=== PATIENT | male | born 1955 | race Caucasian/White ===

== ENCOUNTER 2017-11-17 13:54 | Inpatient (IN) | payer BC ==
[2017-11-17 14:00] VITALS: BMI 32.3
--- NOTE | 2017-11-17 16:10 | PDOC ---
History of Present Illness - History of Present Illness Initial Comments: 11/17/17 16:30 The patient is a 62-year-old male with past medical history significant for HTN , DM, and low white count presents to the emergency department with AMS, memory changes and instability with gait. The patient is a poor historian, so the history is provided by his daughter. As per daughter, the patient suffered a fall on November 11. Following, the patient followed up at [facility], uncertain of the diagnostic testing he had. The daughter reports since the fall hes been staying with the daughter. The daughter reports the patients gait been unsteady, secondary to they got the patient a cane. The patient reports associated concern of abdominal and back pain, No focal weakness, fever or chills. Allergies: Penicillins Social history: No alcohol use reported. PCP: None reported <Alicia Jain - Last Filed: 11/17/17 16:42> - General History Source: Patient, Family Exam Limitations: Dementia, Unresponsive <Ciera Atkins - Last Filed: 11/17/17 18:56> - General Chief Complaint: Altered Mental Status Stated Complaint: ALTERED MENTAL STATUS Past History <Alicia Jain - Last Filed: 11/17/17 16:42> - Past Medical History Anemia: Yes COPD: No Diabetes: Yes HTN: Yes - Surgical History Appendectomy: Yes - Suicide/Smoking/Psychosocial Hx Smoking History: Former smoker Have you smoked in the past 12 months: No If you are a former smoker, when did you quit?: years ago Information on smoking cessation initiated: No <Ciera Atkins - Last Filed: 11/17/17 18:56> - Past Medical History Allergies/Adverse Reactions: Allergies Allergy/AdvReac Type Severity Reaction Status Date / Time Penicillins Allergy Verified 11/17/17 13:56 Review of Systems - Review of Systems Comments:: 11/17/17 16:41 GENERAL/CONSTITUTIONAL: (+) AMS and confusion and No fever or chills. HEAD, EYES, EARS, NOSE AND THROAT: No change in vision. No ear pain or discharge. No sore throat. CARDIOVASCULAR: No chest pain or shortness of breath. RESPIRATORY: No cough, wheezing, or hemoptysis. GASTROINTESTINAL: (+) abd pain. No nausea, vomiting, diarrhea or constipation. GENITOURINARY: No dysuria, frequency, or change in urination. MUSCULOSKELETAL: (+) back pain. No joint or muscle swelling or pain. No neck pain. SKIN: No rash NEUROLOGIC: gait instability. No headache, vertigo, loss of consciousness, or change in strength/sensation. ENDOCRINE: No increased thirst. No abnormal weight change. HEMATOLOGIC/LYMPHATIC: No anemia, easy bleeding, or history of blood clots. ALLERGIC/IMMUNOLOGIC: No hives or skin allergy. <Alicia Jain - Last Filed: 11/17/17 16:42> *Physical Exam - Vital Signs Last Vital Signs Temp Pulse Resp BP Pulse Ox 97.5 F L 54 L 20 113/59 L 96 11/17/17 13:56 11/17/17 13:56 11/17/17 13:56 11/17/17 13:56 11/17/17 13:56 <Alicia Jain - Last Filed: 11/17/17 16:42> - Vital Signs Last Vital Signs Temp Pulse Resp BP Pulse Ox 97.5 F L 54 L 20 113/59 L 96 11/17/17 13:56 11/17/17 13:56 11/17/17 13:56 11/17/17 13:56 11/17/17 13:56 - Physical Exam Comments: 11/17/17 16:09 Awake alert no acute distress. Head is atraumatic. No midline cervical spinal tenderness. Lungs are clear bilaterally heart is regular without any murmurs rubs or gallops. Abdomen is soft and nontender. The back demonstrates mid thoracic spinal tenderness no flank ecchymosis noted. Neurologically the patient is awake alert oriented 3 does have difficulty with remote memory and can't recollect the events of his prior workup. Speech is clear strength is 5 out of 5 all 4 extremities. Finger to nose bilaterally is normal cranial nerves II through XII are intact <Ciera Atkins - Last Filed: 11/17/17 18:56> Heart Score/ECG Review #1 General ECG Interpretation: Sinus Rhythm, Normal Rate, Normal Intervals, No acute ischemic changes Compared to previous ECG there are: Other (TWI II, AVF flattened. no old ekg.) <Ciera Atkins - Last Filed: 11/17/17 18:56> ED Treatment Course - LABORATORY CBC & Chemistry Diagram: 11/17/17 17:00 11/17/17 17:00 - RADIOLOGY Radiology Studies Ordered: Category Date Time Status HEAD CT WITHOUT CONTRAST [CT] Stat CT Scan 11/17/17 15:54 Ordered <Ciera Atkins - Last Filed: 11/17/17 18:56> Medical Decision Making - Medical Decision Making 11/17/17 16:07 62 yo male with h/o htn, DM , low wbc count here s/p fall 11/11 ( 1 week ago) here with instable gait, confusion and memory changes. no focal waewaknss. was seen at [facility], uncertain of diagnostic test that were performed. also c/o upper back pain. no n/v. does have a headache. denies alcohol or drug use. differential: infeciton, ich, anemia, cva, plan labs ekg tox ct head. cxr xray thoracic spine. 11/17/17 16:37 per patients consent, was able to call [facility] where pt was seen , confirmed pt had a srinivasan scan and ct head which were negative for any traumatic injuries. 11/17/17 16:[address] head. 11/17/17 18:55 pt states he has been taking new medication for panic attacks. which he stopped. tox positive for methadone and benzo. ct head negative. will refer outpt. pt want to go home fu pcp and nuerology. 11/17/17 18:56 pt alert and oriented x 3 now. <Ciera Atkins - Last Filed: 11/17/17 18:56> *DC/Admit/Observation/Transfer - Attestations Scribe Attestion: 11/17/17 16:43 Documentation prepared by Alicia Jain, acting as medical radiation therapist for Ciera Atkins MD. <Alicia Jain - Last Filed: 11/17/17 16:42> <Ciera Atkins - Last Filed: 11/17/17 18:56> Diagnosis at time of Disposition: Headache
[2017-11-17 17:13] LABS: BASO % 0.8 % (0-2.0); EOS % 2.9 % (0-4.5); HEMATOCRIT 36.1 % (35.4-49); HEMOGLOBIN 11.6 GM/dL (11.7-16.9); LYMPH % 32.6 % (8-40); MCH 25.3 pg (25.7-33.7); MCHC 32.2 g/dl (32.0-35.9); MEAN CELL VOLUME 78.7 fl (80-96); MEAN PLT VOLUME 7.4 fl (7.5-11.1); NEUT % 56.7 % (42.8-82.8); PLATELET COUNT 188 K/MM3 (134-434); RBC 4.58 M/mm3 (4.00-5.60); RDW 16.4 % (11.9-15.9); WHITE BLOOD COUNT 6.2 K/mm3 (4.0-10.0)
[2017-11-17 17:28] LABS: URINE APPEARANCE CLEAR; URINE BILIRUBIN NEGATIVE (<2.0 mg/dL); URINE COLOR DKYELLOW; URINE GLUCOSE (UA) NEGATIVE (NEGATIVE); URINE KETONE NEGATIVE (NEGATIVE); URINE LEUK ESTERASE NEGATIVE (NEGATIVE); URINE NITRITE NEGATIVE (NEGATIVE); URINE PROTEIN 1+ (NEGATIVE)
[2017-11-17 17:43] LABS: ALBUMIN 3.8 g/dl (3.4-5.0); ALK PHOS 96 U/L (45-117); ANION GAP 4 MMOL/L (8-16); BILIRUBIN,TOTAL 0.4 mg/dL (0.2-1); BLOOD UREA NITROGEN 17 mg/dL (7-18); CALCIUM 8.6 mg/dL (8.5-10.1); CHLORIDE 104 mmol/L (98-107); CO2 33 mmol/L (21-32); CREATININE 1.3 mg/dL (0.55-1.3); GLUCOSE,RANDOM 70 mg/dL (74-106); POTASSIUM 4.3 mmol/L (3.5-5.1); SGOT/AST 30 U/L (15-37); SGPT/ALT 22 U/L (13-61); SODIUM 141 mmol/L (136-145); TOT PROT 7.4 g/dl (6.4-8.2)
[2017-11-17 17:45] LABS: COCAINE, UR NEGATIVE ng/ml (CUTOFF=300); OPIATES, URI NEGATIVE ng/ml (CUTOFF=300); PHENCYCLIDINE,URINE NEGATIVE ng/ml (CUTOFF=25); URINE AMPHETAMINES NEGATIVE ng/ml (CUTOFF=500); URINE BARBITURATES NEGATIVE ng/ml (CUTOFF=200)
[2017-11-17 17:46] LABS: METHADONE, UR POSITIVE ng/ml (CUTOFF=300); URINE BENZODIAZEPINES POSITIVE ng/ml (CUTOFF=200)
[2017-11-17 18:54] LABS: URINE HYALINE CAST 0-1 /lpf; URINE MUCUS RARE
--- NOTE | 2017-11-17 21:07 | PN ---
Teaching Attending Note Name of Resident: Noe Simeon ATTENDING PHYSICIAN STATEMENT I saw and evaluated the patient. I reviewed the resident's note and discussed the case with the resident. I agree with the resident's findings and plan as documented. SUBJECTIVE: Patient is a 62 year old man with PMH of HTN, NIDDM, penicillin allergy and low white count who presents to the ER with AMS, memory changes and instability with gait. The patient is a poor historian, so the history is provided by his daughter. As per daughter, the patient suffered a fall from a height at work on November 11. Following, the patient followed up at [facility], uncertain of the diagnostic testing he had. The daughter reports since the fall hes been staying with the daughter. The daughter reports the patients gait been unsteady , secondary to they got the patient a cane. The patient reports associated concern of abdominal and back pain, No focal weakness, fever or chills. OBJECTIVE: Alert and globally weak Vital Signs Period Temp Pulse Resp BP Sys/Persaud Pulse Ox Last 24 Hr 97.5 F-97.8 F 54-54 18-20 113-116/56-59 96-98 HEENT: No Jaundice, eye redness or discharge, PERRLA, EOMI. Normocephalic, atraumatic. External ears are normal and hearing is grossly intact. No nasal discharge. Neck: Supple, nontender. No palpable adenopathy or thyromegaly. No JVD Chest: Good effort. Clear to auscultation and percussion. Heart: Regular. No S3, rub or murmur Abdomen: Not distended, soft, nontender and no HSM. No rebound or guarding. Normoactive bowel sounds. Ext: Peripheral pulses intact. No leg edema. Tender in lumbosacral area Skin: Warm and dry. No petechiae, rash or ecchymosis. Neuro: Alert. Oriented x3. Globally weak and sluggish. Poor memory. Poor gait. CN 2-12 grossly intact. Sensation grossly intact in all four extremities and DTR are symmetric. Abnormal Lab Results 11/17/17 11/17/17 11/17/17 17:00 17:00 17:20 Hgb 11.6 L MCV 78.7 L MCH 25.3 L RDW 16.4 H MPV 7.4 L Carbon Dioxide 33 H Anion Gap 4 L Random Glucose 70 L Urine Protein 1+ H Methadone Screen Benzodiazepines Screen 11/17/17 17:20 Hgb MCV MCH RDW MPV Carbon Dioxide Anion Gap Random Glucose Urine Protein Methadone Screen Positive A* Benzodiazepines Screen Positive A* ASSESSMENT AND PLAN: 1. Fall and AMS - [place] concern is cerebral concussion as well as brain/spinal cord trauma. Will get stat MRI of brain and spinal cord, treat with Decadron 10 mg q 6 hours, PO protonix, implement fall precautions and consult Neurology and PT. 2. DM - For now, we will hold the home diabetes drugs and implement sliding scale insulin regimen. Provide comprehensive diabetes care with patient teaching and counseling about the importance of euglycemia, eye care and foot care. 3. Low MCV Anemia - Will do basic anemia work up including serial stool guaiacs , reticulocyte count and iron studies. Would benefit from Procrit therapy once iron replete. 4. Obesity - Will provide patient all the necessary assistance, counseling and positive reinforcement to facilitate weight loss. Consult clicker operator. 5. DVT prophylaxis - Lovenox 40 mg SQ q 24 hours. 6. Advance directives - Full code
--- NOTE | 2017-11-17 22:14 | HP ---
CHIEF COMPLAINT: Severe back pain and weakness PCP: HISTORY OF PRESENT ILLNESS: 62yo M with history of HTN, ? DM, and chronic back pain who presents with severe back pain manifesting 1 week after traumatic fall reportedly from 20- 25ft. Pt reports he was on a ladder and then fell with loss of consciousness. Pt reports not remembering any of the events, but family member reports pt was sent to [facility] for initial workup. Pt was discharged at this time on 11/11/17 from [facility]. Unfortunately, pt reports increasing severe back pain located at the cervical spine, about T5, and about L4 regions of his back. Pt endorses severe R unilateral headache with associated blurry vision intermittently. In addition pt reports having an unstable gait and recently bought a cane due to the instability. He states that throughout the past week he has had clouding of his sensorium and feels that he can't do working memory tasks as fast as he could prior to the fall (with in agreement). PAST MEDICAL HISTORY: HTN ? diet-controlled DM PAST SURGICAL HISTORY: Social History: Smoking: None Alcohol: None Drugs: None Lives at home with . Baseline prior to fall was neurologically intact, walking independently without assist device Family History: No history of psych or neuro disorders; otherwise deferred for promptness of MRI Allergies Penicillins Allergy (Verified 11/17/17 13:56) HOME MEDICATIONS: REVIEW OF SYSTEMS CONSTITUTIONAL: Absent: fever, chills, diaphoresis, generalized weakness, malaise, loss of appetite, weight change HEENT: Absent: rhinorrhea, nasal congestion, throat pain, throat swelling, difficulty swallowing, mouth swelling, ear pain, eye pain, visual changes CARDIOVASCULAR: Absent: chest pain, syncope, palpitations, irregular heart rate, lightheadedness , peripheral edema RESPIRATORY: Absent: cough, shortness of breath, dyspnea with exertion, orthopnea, wheezing, stridor, hemoptysis GASTROINTESTINAL: Absent: abdominal pain, abdominal distension, nausea, vomiting, diarrhea, constipation, melena, hematochezia GENITOURINARY: Absent: dysuria, frequency, urgency, hesitancy, hematuria, flank pain, genital pain MUSCULOSKELETAL: Absent: myalgia, arthralgia, joint swelling, back pain, neck pain SKIN: Absent: rash, itching, pallor HEMATOLOGIC/IMMUNOLOGIC: Absent: easy bleeding, easy bruising, lymphadenopathy, frequent infections ENDOCRINE: Absent: unexplained weight gain, unexplained weight loss, heat intolerance, cold intolerance NEUROLOGIC: Absent: headache, focal weakness or paresthesias, dizziness, unsteady gait, seizure, mental status changes, bladder or bowel incontinence PSYCHIATRIC: Absent: anxiety, depression, suicidal or homicidal ideation, hallucinations. PHYSICAL EXAMINATION Vital Signs - 24 hr 11/17/17 11/17/17 13:56 18:35 Temperature 97.5 F L 97.8 F Pulse Rate 54 L Pulse Rate [ 54 L Right] Respiratory 20 18 Rate Blood Pressure 113/59 L Blood Pressure 116/56 L [Right Arm] O2 Sat by Pulse 96 98 Oximetry (%) GENERAL: Mild-mod distress from pain, awake, alert to spontaneous stimuli, oriented x3. laying in bed on side HEENT: NC/AT, MARY ALICE, sclera anicteric, dry MM noted, peripheral vision intact, however pt reports sometimes blurriness during exam LUNGS: Poor inspiratory effort, CTA b/l. No wheezes, and no crackles. No accessory muscle use. HEART: RRR, normal S1 and S2 without murmur ABDOMEN: Soft, nondistended, normoactive BS, slightly tender region periumbillically, no abdominal bruit auscultated, difficult to assess abdominal aorta due to body habitus, voluntary guarding noted, no masses. Could not assess organomegaly. MUSCULOSKELETAL: Multiple points of point tenderness of spinous process most notably at C5-6, T5-6, and L4-5 regions with associated paraspinal tenderness R> L. No overt spinal instability at this time. ROM limitations due to pain with movement. EXTREMITIES: 2+ DP and PT pulses, warm, well-perfused. No cyanosis. No peripheral edema. NEUROLOGICAL: EOMI intact, MARY ALICE CN II-XII intact, strength 3/5 with LUE hand senior cognos developer vs. 4/5 with RUE, 4/5 b/l with abduction and adduction of hands 4/5 b/l with arm flexion and extension hip flexion limited due to pain Plantar and dorsal flexion 5/5 Sensation diminished in LUE C6, 7, 8 distribution compared to R Dysmetria with intentional tremoring with L sided [id number] test; R side normal (Exam performed while pt on back) Dysdiadochokinesia noted with L hand PSYCHIATRIC: Cooperative. Good eye contact. Appropriate mood and affect. SKIN: Warm, dry, normal turgor, no rashes or lesions noted, no overt ecchymosis of the back noted or any ecchymosis of the abdomen Laboratory Results - last 24 hr 11/17/17 11/17/17 11/17/17 17:00 17:00 17:20 WBC 6.2 RBC 4.58 Hgb 11.6 L Hct 36.1 MCV 78.7 L MCH 25.3 L MCHC 32.2 RDW 16.4 H Plt Count 188 MPV 7.4 L Absolute Neuts (auto) 3.5 Neutrophils % 56.7 Lymphocytes % 32.6 Monocytes % 7.0 Eosinophils % 2.9 Basophils % 0.8 Nucleated RBC % 0 Sodium 141 Potassium 4.3 Chloride 104 Carbon Dioxide 33 H Anion Gap 4 L BUN 17 Creatinine 1.3 Creat Clearance w eGFR 55.94 Random Glucose 70 L Calcium 8.6 Total Bilirubin 0.4 AST 30 ALT 22 Alkaline Phosphatase 96 Total Protein 7.4 Albumin 3.8 Urine Color Dkyellow Urine Appearance Clear Urine pH 5.0 Ur Specific [place] 1.029 Urine Protein 1+ H Urine Glucose (UA) Negative Urine Ketones Negative Urine Blood Negative Urine Nitrite Negative Urine Bilirubin Negative Urine Urobilinogen 2.0 Ur Leukocyte Esterase Negative Urine WBC (Auto) 10 Urine RBC (Auto) 2-5 Hyaline Casts 0-1 Urine Mucus Rare Opiates Screen Methadone Screen Barbiturate Screen Phencyclidine Screen Ur Amphetamines Screen MDMA (Ecstasy) Screen Benzodiazepines Screen Cocaine Screen U Marijuana (THC) Screen 11/17/17 17:20 WBC RBC Hgb Hct MCV MCH MCHC RDW Plt Count MPV Absolute Neuts (auto) Neutrophils % Lymphocytes % Monocytes % Eosinophils % Basophils % Nucleated RBC % Sodium Potassium Chloride Carbon Dioxide Anion Gap BUN Creatinine Creat Clearance w eGFR Random Glucose Calcium Total Bilirubin AST ALT Alkaline Phosphatase Total Protein Albumin Urine Color Urine Appearance Urine pH Ur Specific [place] Urine Protein Urine Glucose (UA) Urine Ketones Urine Blood Urine Nitrite Urine Bilirubin Urine Urobilinogen Ur Leukocyte Esterase Urine WBC (Auto) Urine RBC (Auto) Hyaline Casts Urine Mucus Opiates Screen Negative Methadone Screen Positive A* Barbiturate Screen Negative Phencyclidine Screen Negative Ur Amphetamines Screen Negative MDMA (Ecstasy) Screen Negative Benzodiazepines Screen Positive A* Cocaine Screen Negative U Marijuana (THC) Screen Negative ASSESSMENT/PLAN: 1) R/o traumatic spinal cord injury --Emergent C,T,L-spine MRI w/o contrast to r/o cord compression or traction injury --Neurology already consulted in ED --Will await imaging prior to consulting neurosurgery --Decadron 10mg q6h starting NOW for possible neurological inflammation --Fall precautions 2) History HTN --Right now BP WNL --Will hold off antihypertensives for now and monitor BP 3) History of Methadone use --Pt did not provide Methadone card tonight --Already received dose today from services --Will have to confirm dose tomorrow AM 4) ? DM history --A1c in AM labs --BGM for now --Can implement ISS if anything noted to be elevated 5) Microcytic anemia --Iron studies in AM --No acute bleeds at this point --Doubt thalassemia history FEN: Fluids: Not indicated at this time Electrolyte abnormalities: None currently Nutrition: NPO currently until no intervention needed PPX: DVT - Holding heparin SQ in case of surgical intervention needed; SCDs currently GI - Protonix PO daily Dispo: Admit to M/S Case discussed with Dr. Maura Simeon, DO - IM PGY-2 Visit type - Emergency Visit Emergency Visit: Yes ED Registration Date: 11/18/17 Care time: The patient presented to the Emergency Department on the above date and was hospitalized for further evaluation of their emergent condition. - New Patient This patient is new to me today: Yes Date on this admission: 11/18/17 - Critical Care Critical Care patient: No
[2017-11-17] MEDS ORDERED: DEXAMETHASONE SOD PHOSPHATE 10 MG/1 ML VIAL ONE (22:37)
[2017-11-17] MEDS: DEXAMETHASONE SOD PHOSPHATE 10 MG/1 ML VIAL IVPUSH SCH (23:00)
--- NOTE | 2017-11-18 00:16 | PDOC ---
*Physical Exam - Vital Signs Last Vital Signs Temp Pulse Resp BP Pulse Ox 98.4 F 50 L 16 114/57 L 92 L 11/17/17 23:10 11/17/17 23:10 11/17/17 23:10 11/17/17 23:10 11/17/17 23:10 ED Treatment Course - LABORATORY CBC & Chemistry Diagram: 11/17/17 17:00 11/17/17 17:00 - ADDITIONAL ORDERS Additional order review: Laboratory Results 11/17/17 11/17/17 11/17/17 17:20 17:20 17:00 Sodium 141 Potassium 4.3 Chloride 104 Carbon Dioxide 33 H Anion Gap 4 L BUN 17 Creatinine 1.3 Creat Clearance w eGFR 55.94 Random Glucose 70 L Calcium 8.6 Total Bilirubin 0.4 AST 30 ALT 22 Alkaline Phosphatase 96 Total Protein 7.4 Albumin 3.8 Urine Color Dkyellow Urine Appearance Clear Urine pH 5.0 Ur Specific [place] 1.029 Urine Protein 1+ H Urine Glucose (UA) Negative Urine Ketones Negative Urine Blood Negative Urine Nitrite Negative Urine Bilirubin Negative Urine Urobilinogen 2.0 Ur Leukocyte Esterase Negative Urine WBC (Auto) 10 Urine RBC (Auto) 2-5 Hyaline Casts 0-1 Urine Mucus Rare Opiates Screen Negative Methadone Screen Positive A* Barbiturate Screen Negative Phencyclidine Screen Negative Ur Amphetamines Screen Negative MDMA (Ecstasy) Screen Negative Benzodiazepines Screen Positive A* Cocaine Screen Negative U Marijuana (THC) Screen Negative 11/17/17 17:00 RBC 4.58 MCV 78.7 L MCHC 32.2 RDW 16.4 H MPV 7.4 L Neutrophils % 56.7 Lymphocytes % 32.6 Monocytes % 7.0 Eosinophils % 2.9 Basophils % 0.8 - RADIOLOGY Radiology Studies Ordered: Category Date Time Status BRAIN MRI W/O CONTRAST [MRI] Stat MRI 11/17/17 20:12 Taken CERVICAL SPINE MRI W/O CONTR [MRI] Stat MRI 11/17/17 20:12 Taken LUMBAR SPINE MRI W/O CONTRAST [MRI] Stat MRI 11/17/17 20:12 Taken THORACIC SPINE MRI W/O CONTR [MRI] Stat MRI 11/17/17 20:12 Taken *DC/Admit/Observation/Transfer Diagnosis at time of Disposition: Headache, Head trauma, Spine injury, Unstable balance - Discharge Dispostion Condition at time of disposition: Guarded Decision to Admit order: Yes - Referrals - Patient Instructions - Post Discharge Activity
[2017-11-18] MEDS ORDERED: DEXAMETHASONE SOD PHOSPHATE 10 MG/1 ML VIAL ONE (03:07)
[2017-11-18] MEDS: DEXAMETHASONE SOD PHOSPHATE 10 MG/1 ML VIAL IVPUSH SCH ×4 (03:08→21:45)
[2017-11-18] MEDS ORDERED: ACETAMINOPHEN 325 MG TABLET (FP) ONE (04:10)
[2017-11-18] MEDS ORDERED: ACETAMINOPHEN 325 MG TABLET (FP) PO PRN (07:04)
[2017-11-18 07:57] LABS: HEMATOCRIT 36.9 % (35.4-49); HEMOGLOBIN 11.8 GM/dL (11.7-16.9); MCH 24.9 pg (25.7-33.7); MCHC 31.9 g/dl (32.0-35.9); MEAN CELL VOLUME 78.1 fl (80-96); MEAN PLT VOLUME 7.7 fl (7.5-11.1); PLATELET COUNT 158 K/MM3 (134-434); RBC 4.72 M/mm3 (4.00-5.60); RDW 16.6 % (11.9-15.9); WHITE BLOOD COUNT 4.5 K/mm3 (4.0-10.0)
[2017-11-18 08:24] LABS: ALBUMIN 3.6 g/dl (3.4-5.0); ALK PHOS 94 U/L (45-117); ANION GAP 6 MMOL/L (8-16); BILIRUBIN,TOTAL 0.4 mg/dL (0.2-1); BLOOD UREA NITROGEN 17 mg/dL (7-18); CALCIUM 8.5 mg/dL (8.5-10.1); CHLORIDE 102 mmol/L (98-107); CO2 29 mmol/L (21-32); GLUCOSE,RANDOM 151 mg/dL (74-106); MAGNESIUM 2.3 mg/dL (1.8-2.4); PHOSPHOROUS 2.6 mg/dL (2.5-4.9); POTASSIUM 4.3 mmol/L (3.5-5.1); SGOT/AST 25 U/L (15-37); SGPT/ALT 20 U/L (13-61); SODIUM 137 mmol/L (136-145); TOT PROT 7.6 g/dl (6.4-8.2)
[2017-11-18] MEDS ORDERED: PT OWN MED DRAWER 7, Y5N ONE ×2 (09:35→21:11)
[2017-11-18] MEDS: PANTOPRAZOLE 40 MG TABLET (FP) PO SCH (10:29)
--- NOTE | 2017-11-18 14:26 | PN ---
Progress Note (short form) - Note Progress Note: currently asymptomatic. states he has been increasingly forgetful, more to short term than longterm memory over the past week since falling off the boiler 1 week ago. also noted an ataxic gait during this time requiring him to use a cane but states its slightly better. Saw PMD this past week who recommended some f/u images which were scheduled for next week. also admits to bowel incontinence denies Cp, SOB, fever, chills, N/v/C/D, numbness/weakness, denies every taking a betablocker, changes in medications. Took some tylenol for pain but denies OTC or herbal supplement Current Medications Generic Name Dose Route Start Last Admin Trade Name Freq PRN Reason Stop Dose Admin Acetaminophen 650 mg 11/18/17 07:04 11/18/17 10:33 Tylenol - PO 650 mg Q4H PRN Administration FEVER Dexamethasone Sodium Phosphate 10 mg 11/17/17 22:15 11/18/17 11:38 Decadron Injection - IVPUSH 10 mg Q6H-IV BERTO Administration Pantoprazole Sodium 40 mg 11/18/17 10:00 11/18/17 10:29 Protonix - PO 40 mg DAILY BERTO Administration Last Vital Signs Temp Pulse Resp BP Pulse Ox 98.2 F 40 L 17 149/72 95 11/18/17 08:00 11/18/17 08:00 11/18/17 09:00 11/18/17 08:00 11/18/17 09:00 General NAD CV S1 s2 RRR no murmur/rub/gallop Lungs CTA B/l no wheezing/rales/rhnchi Neuro CN II -XII grossly intact, negative pronator/dysmetria/dysdakinesia/heel to thomas testing. strength 3/5 RLE (poximal>distal) 5/5 in all other extremities , sensation intact all extremities. good rectal tone CBCD WBC 4.5 K/mm3 (4.0-10.0) 11/18/17 06:40 RBC 4.72 M/mm3 (4.00-5.60) 11/18/17 06:40 Hgb 11.8 GM/dL (11.7-16.9) 11/18/17 06:40 Hct 36.9 % (35.4-49) 11/18/17 06:40 MCV 78.1 fl (80-96) L 11/18/17 06:40 MCHC 31.9 g/dl (32.0-35.9) L 11/18/17 06:40 RDW 16.6 % (11.9-15.9) H 11/18/17 06:40 Plt Count 158 K/MM3 (134-434) 11/18/17 06:40 MPV 7.7 fl (7.5-11.1) 11/18/17 06:40 CMP Sodium 137 mmol/L (136-145) 11/18/17 06:40 Potassium 4.3 mmol/L (3.5-5.1) 11/18/17 06:40 Chloride 102 mmol/L (98-107) 11/18/17 06:40 Carbon Dioxide 29 mmol/L (21-32) 11/18/17 06:40 Anion Gap 6 MMOL/L (8-16) L 11/18/17 06:40 BUN 17 mg/dL (7-18) 11/18/17 06:40 Creatinine 1.0 mg/dL (0.55-1.3) 11/18/17 06:40 Creat Clearance w eGFR > 60 (>60) 11/18/17 06:40 Calcium 8.5 mg/dL (8.5-10.1) 11/18/17 06:40 Total Bilirubin 0.4 mg/dL (0.2-1) 11/18/17 06:40 AST 25 U/L (15-37) 11/18/17 06:40 ALT 20 U/L (13-61) 11/18/17 06:40 Alkaline Phosphatase 94 U/L (45-117) 11/18/17 06:40 Total Protein 7.6 g/dl (6.4-8.2) 11/18/17 06:40 Albumin 3.6 g/dl (3.4-5.0) 11/18/17 06:40 A/P 62yo M wtih PMH HTN, DM, panic disorder and chronic pain on methadone presented to the ER with progressively worsening memory and ataxic gait after traumatic fall 1. memory loss- s/p traumatic fall. concern patient may have had a concussion however concern for spinal cord injury. Started on Dex and Stat MRI of the brain and complete spinal cord was done. awaiting official read. there are no neurological deficits. Neuro consulted. will consider neurosurgical eval if MRI shows + result 2. Asymptomatic bradycardia- sinus radha on EKG. no heart block. responds to activity. Resting HR 52 increases to 65 with 30sec of light activity 3. HTN- slight above goal. will re-start home medication 4. Macrocytosis- Vit b12 and folate elevated. can have further workup as outpatient 5. DM- A1c 6.6. diet controlled at home. encouraged him to have stricter glycemic control with dietary chagnes and reductions in sweets (eats a lot of candy) 6. Panic disorder- has script for BZD (can not recall which one) he uses as needed 7. Chronic pain on methadone- states he gets from [facility] and takes 60mg. RN to confirm dosing 8. DVT ppx- EAM 9. spoke with daughter present at bedside. all questions answered. verbalized understanding and agreement [facility] plan Visit type - Emergency Visit Emergency Visit: Yes ED Registration Date: 11/18/17 Care time: The patient presented to the Emergency Department on the above date and was hospitalized for further evaluation of their emergent condition. - New Patient This patient is new to me today: Yes Date on this admission: 11/18/17 - Critical Care Critical Care patient: No - Discharge Referral Referred to [facility] No
--- NOTE | 2017-11-18 14:49 | CON.NEURO ---
Consult Consult Specialty:: neurology - History of Present Illness Chief Complaint: fall , imbalance History of Present Illness: 62yo M with history of HTN, ? DM, and chronic back pain who presents with severe back pain manifesting 1 week after traumatic fall reportedly from 20- 25ft. Pt reports he was on a ladder and then fell with loss of consciousness. Pt reports not remembering any of the events, but family member reports pt was sent to [facility] for initial workup. Pt was discharged at this time on 11/11/17 from [place]. Unfortunately, pt reports increasing severe back pain located at the cervical spine, about T5, and about L4 regions of his back. Pt endorses severe R unilateral headache with associated blurry vision intermittently. I saw and examined the pt at the bedside; he states that has been having mild imbalance and memory lapses since has had the fall ; he states that his gait is improved since he has been admitted. He denies any active pain or headache right now ; he has had MRI brain , T/LS done. - Alcohol/Substance Use Hx Alcohol Use: No - Smoking History Smoking history: Former smoker Have you smoked in the past 12 months: No If you are a former smoker, when did you quit?: 37 years ago Home Medications - Allergies Allergies/Adverse Reactions: Allergies Allergy/AdvReac Type Severity Reaction Status Date / Time Penicillins Allergy Verified 11/17/17 13:56 - Home Medications Home Medications: Ambulatory Orders Esomeprazole Magnesium [Nexium 24Hr] 20 mg PO DAILY 11/18/17 Hydrochlorothiazide [Hctz -] 25 mg PO DAILY 11/18/17 Lisinopril [Prinivil -] 40 mg PO DAILY 11/18/17 Methadone [Dolophine -] 60 mg PO DAILY 11/18/17 Review of Systems - Review of Systems Constitutional: reports: No Symptoms HENT: reports: No Symptoms Cardiovascular: reports: No Symptoms Respiratory: reports: No Symptoms Gastrointestinal: reports: No Symptoms Genitourinary: reports: No Symptoms Endocrine: reports: No Symptoms Hematology/Lymphatic: reports: No Symptoms Psychiatric: reports: No Symptoms Physical Exam-Neuro Vital Signs: Vital Signs Temperature 98.2 F 11/18/17 08:00 Pulse Rate 40 L 11/18/17 08:00 Respiratory Rate 17 11/18/17 09:00 Blood Pressure 149/72 11/18/17 08:00 O2 Sat by Pulse Oximetry (%) 95 11/18/17 09:00 Constitutional: Yes: Well Nourished, No Distress, Calm Neck: Yes: WNL Cardiovascular: Yes: WNL Respiratory: Yes: WNL Edema: No Psychiatric: Yes: WNL Labs: CBC, BMP 11/18/17 06:40 11/18/17 06:40 - Neuro Exam Level Of Consciousness: Yes: Alert, Oriented to Person, Oriented to Place, Oriented to Time Eyes: Yes: PERRLA Speech: WNL Cranial Nerves II-XII Intact: Yes Gag: Present DTR's: 2+ Left Bicep, 2+ Right Bicep, 2+ Left Tricep, 2+ Right Tricep, 2+ Left Brachioradialis, 2+ Right Brachioradialis, 2+ Left Achilles, 2+ Right Achilles Response to light touch: Normal Response to pain prick: Normal Coordination: Normal: Finger to Nose, Heel to [place] Motor Strength: 5/5: Left Arm, Right Arm, Left Leg, Right Leg Gait: Normal Imaging - Results MRI: Image Reviewed (C4/C5 , C5/C6 disc disease w stenosis on my review.) Problem List - Problems (1) Head trauma Code(s): S09.90XA - UNSPECIFIED INJURY OF HEAD, INITIAL ENCOUNTER (2) Spine injury Code(s): QKA3742 - (3) Unstable balance Code(s): R26.89 - OTHER ABNORMALITIES OF GAIT AND MOBILITY Assessment/Plan Fall from 20 feet 6 days ago , mild imbalance on exam , no evidence of cervical myelopathy or english ; MRI C revealed C4/5 , C5/6 disc disease w stenosis; MRI brain no acute finding except WMD. cervical radiculopathy TBI Gabapentin neuro sx consult avoid sharp turn of head PT/OT Fall precautions B12, TSH, RPR Health maintenance per primary team. THX Santosh Dudley MD [phone]
[2017-11-18] MEDS: LISINOPRIL 20 MG TABLET (FP) PO SCH (16:07)
--- NOTE | 2017-11-18 16:43 | EKG ---
Test Reason : Blood Pressure : / mmHG Vent. Rate : 040 BPM Atrial Rate : 040 BPM P-R Int : 152 ms QRS Dur : 082 ms QT Int : 502 ms P-R-T Axes : 035 003 010 degrees QTc Int : 409 ms MARKED SINUS BRADYCARDIA ABNORMAL ECG NO PREVIOUS ECGS AVAILABLE CLINICAL CORRELATION IS RECOMMENDED Confirmed by MIRANDA SANTIAGO, LUCIE ([id number]) on 11/18/2017 4:43:09 PM Referred By: Nicolette GALINDO Confirmed By:LUCIE JEAN MD
--- NOTE | 2017-11-18 17:06 | EKG ---
Test Reason : Blood Pressure : / mmHG Vent. Rate : 050 BPM Atrial Rate : 050 BPM P-R Int : 110 ms QRS Dur : 090 ms QT Int : 494 ms P-R-T Axes : 043 001 008 degrees QTc Int : 450 ms SINUS BRADYCARDIA OTHERWISE NORMAL ECG NO PREVIOUS ECGS AVAILABLE BASELINE ARTIFACT Confirmed by MIRANDA SANTIAGO, LUCIE ([id number]) on 11/18/2017 5:06:31 PM Referred By: Confirmed By:LUCIE JEAN MD
[2017-11-18] MEDS ORDERED: MELATONIN 5 MG TABLETS PO ONE (20:41)
[2017-11-19] MEDS: DEXAMETHASONE SOD PHOSPHATE 10 MG/1 ML VIAL IVPUSH SCH ×2 (03:43→10:25)
--- NOTE | 2017-11-19 07:52 | PN ---
Physical Exam: SUBJECTIVE: Patient seen and examined OBJECTIVE: Vital Signs Period Temp Pulse Resp BP Sys/Persaud Pulse Ox Last 24 Hr 97.4 F-98.7 F 38-74 17-20 118-152/71-82 95-96 GENERAL: The patient is awake, alert, and fully oriented, in no acute distress. HEAD: Normal with no signs of trauma. EYES: PERRL, extraocular movements intact, sclera anicteric, conjunctiva clear. No ptosis. ENT: Ears normal, nares patent, oropharynx clear without exudates, moist mucous membranes. NECK: Trachea midline, full range of motion, supple. LUNGS: Breath sounds equal, clear to auscultation bilaterally, no wheezes, no crackles, no accessory muscle use. HEART: Regular rate and rhythm, S1, S2 without murmur, rub or gallop. ABDOMEN: Soft, nontender, nondistended, normoactive bowel sounds, no guarding, no rebound, no hepatosplenomegaly, no masses. EXTREMITIES: 2+ pulses, warm, well-perfused, no edema. NEUROLOGICAL: Cranial nerves II through XII grossly intact. Normal speech, gait not observed. PSYCH: Normal mood, normal affect. SKIN: Warm, dry, normal turgor, no rashes or lesions noted Laboratory Results - last 24 hr 11/18/17 11/18/17 11/18/17 06:40 06:40 06:40 WBC 4.5 RBC 4.72 Hgb 11.8 Hct 36.9 MCV 78.1 L MCH 24.9 L MCHC 31.9 L RDW 16.6 H Plt Count 158 MPV 7.7 Sodium 137 Potassium 4.3 Chloride 102 Carbon Dioxide 29 Anion Gap 6 L BUN 17 Creatinine 1.0 Creat Clearance w eGFR > 60 POC Glucometer Random Glucose 151 H Hemoglobin A1c % 6.6 H Calcium 8.5 Phosphorus 2.6 Magnesium 2.3 Total Bilirubin 0.4 AST 25 ALT 20 Alkaline Phosphatase 94 Total Protein 7.6 Albumin 3.6 11/18/17 11/18/17 11/18/17 11:44 17:28 22:58 WBC RBC Hgb Hct MCV MCH MCHC RDW Plt Count MPV Sodium Potassium Chloride Carbon Dioxide Anion Gap BUN Creatinine Creat Clearance w eGFR POC Glucometer 206 155 154 Random Glucose Hemoglobin A1c % Calcium Phosphorus Magnesium Total Bilirubin AST ALT Alkaline Phosphatase Total Protein Albumin 11/19/17 06:30 WBC RBC Hgb Hct MCV MCH MCHC RDW Plt Count MPV Sodium Potassium Chloride Carbon Dioxide Anion Gap BUN Creatinine Creat Clearance w eGFR POC Glucometer 143 Random Glucose Hemoglobin A1c % Calcium Phosphorus Magnesium Total Bilirubin AST ALT Alkaline Phosphatase Total Protein Albumin Active Medications Generic Name Dose Route Start Last Admin Trade Name Freq PRN Reason Stop Dose Admin Acetaminophen 650 mg 11/18/17 07:04 11/18/17 10:33 Tylenol - PO 650 mg Q4H PRN Administration FEVER Dexamethasone Sodium Phosphate 10 mg 11/17/17 22:15 11/19/17 03:43 Decadron Injection - IVPUSH 10 mg Q6H-IV BERTO Administration Lisinopril 40 mg 11/18/17 14:45 11/18/17 16:07 Prinivil PO 40 mg DAILY BERTO Administration Pantoprazole Sodium 40 mg 11/18/17 10:00 11/18/17 10:29 Protonix - PO 40 mg DAILY BERTO Administration ASSESSMENT/PLAN:
--- NOTE | 2017-11-19 09:27 | PN ---
Progress Note, Physician Chief Complaint: FALL History of Present Illness: 62yo M with history of HTN, ? DM, and chronic back pain who presents with severe back pain manifesting 1 week after traumatic fall reportedly from 20- 25ft. Pt reports he was on a ladder and then fell with loss of consciousness. Pt reports not remembering any of the events, but family member reports pt was sent to [facility] for initial workup. Pt was discharged at this time on 11/11/17 from [place]. Unfortunately, pt reports increasing severe back pain located at the cervical spine, about T5, and about L4 regions of his back. Pt endorses severe R unilateral headache with associated blurry vision intermittently. F/U TODAY; No new complaints . - Current Medication List Current Medications: Active Medications Acetaminophen (Tylenol -) 650 mg PO Q4H PRN PRN Reason: FEVER Last Admin: 11/18/17 10:33 Dose: 650 mg Dexamethasone Sodium Phosphate (Decadron Injection -) 10 mg IVPUSH Q6H-IV BERTO Last Admin: 11/19/17 03:43 Dose: 10 mg Lisinopril (Prinivil) 40 mg PO DAILY [facility] Last Admin: 11/18/17 16:07 Dose: 40 mg Pantoprazole Sodium (Protonix -) 40 mg PO DAILY [facility] Last Admin: 11/18/17 10:29 Dose: 40 mg - Objective Vital Signs: Vital Signs Temperature 97.6 F 11/19/17 05:00 Pulse Rate 38 L 11/19/17 05:00 Respiratory Rate 20 11/19/17 05:00 Blood Pressure 118/71 11/19/17 05:00 O2 Sat by Pulse Oximetry (%) 96 11/18/17 21:00 Constitutional: Yes: Well Nourished Eyes: Yes: WNL HENT: Yes: WNL Neck: Yes: WNL Cardiovascular: Yes: WNL Respiratory: Yes: WNL Musculoskeletal: Yes: WNL Extremities: Yes: WNL Edema: No Peripheral Pulses WNL: Yes Neurological: Yes: WNL, Alert, Oriented ...Motor Strength: WNL Psychiatric: Yes: WNL Labs: CBC, BMP 11/18/17 06:40 11/18/17 06:40 - ....Imaging MRI: Report Reviewed (MRI brain - MRI -C C4/5, C5/6 disc bulge , no cord compression), Image Reviewed Problem List - Problems (1) Head trauma Code(s): S09.90XA - UNSPECIFIED INJURY OF HEAD, INITIAL ENCOUNTER (2) Spine injury Code(s): [id number] - (3) Unstable balance Code(s): R26.89 - OTHER ABNORMALITIES OF GAIT AND MOBILITY Assessment/Plan Fall from 20 feet 6 days ago , mild imbalance on exam , no evidence of cervical myelopathy or english ; MRI C revealed C4/5 , C5/6 disc disease w stenosis; MRI brain no acute finding except WMD. cervical radiculopathy TBI Gabapentin neuro sx consult avoid sharp turn of head PT/OT Fall precautions B12, TSH, RPR Health maintenance per primary team. THX Santosh Dudley MD [phone]
[2017-11-19] MEDS ORDERED: PT OWN MED DRAWER 7, Y5N ONE (09:49)
[2017-11-19] MEDS: LISINOPRIL 20 MG TABLET (FP) PO SCH (10:25)
[2017-11-19] MEDS: PANTOPRAZOLE 40 MG TABLET (FP) PO SCH (10:25)
[2017-11-19 10:34] VITALS: BP 152/72; PULSE 39; TEMP 97.8
--- NOTE | 2017-11-19 13:11 | DS ---
Physical Exam: SUBJECTIVE: Patient seen and examined in the AM. He has no complaints and states that his pain is much better, and his mental status is greatly improved from his perspective. OBJECTIVE: Vital Signs Period Temp Pulse Resp BP Sys/Persaud Pulse Ox Last 24 Hr 97.4 F-98.7 F 38-74 18-20 118-152/71-82 96 PHYSICAL EXAM GENERAL: The patient is awake, alert, and fully oriented, in no acute distress. HEAD: Normal with no signs of trauma. EYES: PERRL, EOMI, sclera anicteric ENT: Moist mucous membranes. NECK: Full range of motion, supple. LUNGS: CTA b/l, no crackles or wheezes HEART: Regular rate and rhythm, S1, S2 without murmur ABDOMEN: Soft, nontender, nondistended, normoactive bowel sounds NEUROLOGICAL: Cranial nerves II through XII intact. Normal speech, Normal gait LABS Laboratory Results - last 24 hr 11/18/17 11/18/17 11/19/17 17:28 22:58 06:30 POC Glucometer 155 154 143 11/19/17 12:22 POC Glucometer 193 IMAGING: Head CT: no evidence of acute pathology CXR: No acute chest pathology Thoracic Spine X-ray: Degenerative changes, no acute fractures Brain MRI: Moderate Atrophy, likely chronic microvascular ischemic changes, no acute intracranial pathology Cervical/Thoracic/Lumbar Spine MRI: No Compression fracture or subluxation, Degenerative changes, multilevel disc bulge with facet hypertrophy. HOSPITAL COURSE: Date of Admission:11/18/17 Date of Discharge: 11/19/17 HPI 62yo M with history of HTN, ? DM, and chronic back pain who presents with severe back pain manifesting 1 week after traumatic fall reportedly from 20- 25ft. Pt reports he was on a ladder and then fell with loss of consciousness. Pt reports not remembering any of the events, but family member reports pt was sent to [facility] for initial workup. Pt was discharged at this time on 11/11/17 from [place]. Unfortunately, pt reports increasing severe back pain located at the cervical spine, about T5, and about L4 regions of his back. Pt endorses severe R unilateral headache with associated blurry vision intermittently. In addition pt reports having an unstable gait and recently bought a cane due to the instability. He states that throughout the past week he has had clouding of his sensorium and feels that he can't do working memory tasks as fast as he could prior to the fall (with in agreement). Hospital Course Extensive imaging performed with no acute process as mentioned above. He was seen by Neurology who did not have any further recommendations. The patient's pain and mental status rapidly improved. It was determined that he likely had a previously undiagnosed TBI from his fall which was improving with time. He was deemed medically stable for discharge and instructed to follow up with neurology. Minutes to complete discharge: 35 Discharge Summary Reason For Visit: TRAUMATIC INJURY OF HEAD, SPINAL INJURY Current Active Problems Head trauma (Acute) Headache (Acute) Spine injury (Acute) Unstable balance (Acute) Condition: Good - Instructions Diet, Activity, Other Instructions: You were admitted to the hospital with back pain and confusion after a recent fall. Imaging was done which revealed bulging discs in your lumbar spine but no acute fractures or concerning injuries. You were see by a neurologist who recommended follow up as an outpatient in the office. It is likely that you had a concussion from your fall which led to your memory loss and forgetfulness, which is now improving. Ambulate with cane as you have been. IF you continue to have pain or difficulty ambulating discuss with your primary care doctor about possible seeing a neurosurgeon as you were seen to have disc bulge at L4-L5 and L5-S1 on MRI You should follow up with a neurologist in the office within one week of discharge from the hospital in order to verify continued resolution of your symptoms. You should resume taking all of your medications as they were prescribed prior to admission to the hospital. If you have severe worsening headache, vision changes, nausea, vomiting, or loss of consciousness (passing out of any kind) you should call 911 or return to the emergency department immediately. Referrals: Santosh Avina MD [Staff Physician] - Disposition: HOME - Home Medications Comprehensive Discharge Medication List: Ambulatory Orders Esomeprazole Magnesium [Nexium 24Hr] 20 mg PO DAILY 11/18/17 Hydrochlorothiazide [Hctz -] 25 mg PO DAILY 11/18/17 Lisinopril [Prinivil -] 40 mg PO DAILY 11/18/17 Methadone [Dolophine -] 60 mg PO DAILY 11/18/17 This patient is new to me today: Yes Date on this admission: 11/19/17 Emergency Visit: Yes ED Registration Date: 11/18/17 Care time: The patient presented to the Emergency Department on the above date and was hospitalized for further evaluation of their emergent condition. Critical Care patient: No - Discharge Referral Referred to [facility] No
--- NOTE | 2017-11-19 13:41 | PN ---
Teaching Attending Note Name of Resident: Herman Cabello (\) ATTENDING PHYSICIAN STATEMENT I saw and evaluated the patient. I reviewed the resident's note and discussed the case with the resident. I agree with the resident's findings and plan as documented. SUBJECTIVE:states he overall feels better. continues to be forgetful but does not think its worse than the past few days. denies CP, SOB, fever, chills, N/V/c /D, numbness/tingling OBJECTIVE: Last Vital Signs Temp Pulse Resp BP Pulse Ox 97.8 F 39 L 20 152/72 96 11/19/17 10:33 11/19/17 10:33 11/19/17 10:33 11/19/17 10:33 11/18/17 21:00 General NAD ASSESSMENT AND PLAN: 62yo M wt PMH HTN, DM, panic disorder and chronic pain on methadone presented to the ER with progressively worsening memory and ataxic gait after traumatic fall 1. memory loss- s/p traumatic fall. concern patient may have had a concussion however concern for spinal cord injury. MRI of brain and spinal cord done. no signs of spinal cord injury. does have some disc bulge at L4-L5 and L5-S1 which may be contributing to ataxic gait however no spinal nerve impingement. can d/c dex. should f/u with Neuro as outpatient for furhter workup for memory loss. Neuro consulted. 2. Asymptomatic bradycardia- sinus radha on EKG. no heart block. staets it is well known he has low resting HR. f/u wt PMD for monitoring 3. HTN- improved on home mds 4. Macrocytosis- Vit b12 and folate elevated. can have further workup as outpatient 5. DM- A1c 6.6. diet controlled at home. encouraged him to have stricter glycemic control with dietary chagnes and reductions in sweets (eats a lot of candy) 6. Panic disorder- has script for BZD (can not recall which one) he uses as needed 7. Chronic pain on methadone- states he gets from [facility] and takes 60mg. RN to confirm dosing 8. DVT ppx- EAM 9. PT ambulated 120ft with cane. d/c home with neuro f/u
== END 2017-11-19 14:07 | disposition home or self-care (01) | DRG 552 ==
LOC: JER 13:54 → JERBED 11-18 01:08 → J5S 11-18 05:34
PROVIDERS: ADMIT Internal Medicine; ATTEND Internal Medicine
DX: M50.222 Other cervical disc displacement at C5-C6 level (principal); F11.20 Opioid dependence, uncomplicated; M50.221 Other cervical disc displacement at C4-C5 level; M54.12 Radiculopathy, cervical region; S09.90XA Unspecified injury of head, initial encounter; I10 Essential (primary) hypertension; E11.9 Type 2 diabetes mellitus without complications; R41.82 Altered mental status, unspecified; D64.9 Anemia, unspecified; R26.81 Unsteadiness on feet; Z88.0 Allergy status to penicillin; E66.9 Obesity, unspecified; Z68.32 Body mass index [BMI] 32.0-32.9, adult; M54.9 Dorsalgia, unspecified; F41.0 Panic disorder [episodic paroxysmal anxiety]; D75.89 Other specified diseases of blood and blood-forming organs; R00.1 Bradycardia, unspecified; R41.3 Other amnesia; W17.89XA Other fall from one level to another, initial encounter; Y92.89 Other specified places as the place of occurrence of the external cause; Z87.891 Personal history of nicotine dependence
CPT/HCPCS: 36415; 70450-TC; 70551-TC; 71046-TC-FY; 72070-TC-FY; 72141-TC; 72146-TC; 72148-TC; 80053; 80307; 81003; 81015; 82962; 83036; 83735; 84100; 85025; 85027; 93005; 93010; 97116-GP; 97161-GP; 99285-25; J1100

== ENCOUNTER 2023-02-05 07:06 | Observation (INO) | payer BC, OTHER ==
[2023-02-05 08:38] LABS: BASO % 0.5 % (0-2.0); EOS % 4.3 % (0-4.5); HEMATOCRIT 35.3 % (35.4-49); HEMOGLOBIN 12.1 GM/dL (11.7-16.9); MCH 30.1 pg (25.7-33.7); MCHC 34.2 g/dl (32.0-35.9); MEAN CELL VOLUME 88.1 fl (80-96); MEAN PLT VOLUME 6.4 fl (7.5-11.1); MONO % 8.3 % (3.8-10.2); NEUT % 55.9 % (42.8-82.8); PLATELET COUNT 167 10^3/uL (134-434); RBC 4.01 M/mm3 (4.00-5.60); RDW 13.2 % (11.9-15.9); WHITE BLOOD COUNT 7.1 K/mm3 (4.0-10.0)
[2023-02-05 08:47] LABS: INR 1.09 (0.83-1.09); PROTHROMBIN TIME (PATIENT) 12.6 SEC (9.7-13.0)
[2023-02-05 08:50] LABS: ACTIVATED PTT 31.3 SECONDS (25.2-36.5)
[2023-02-05 09:07] LABS: ALBUMIN 3.4 g/dl (3.4-5.0); BLOOD UREA NITROGEN 16.2 mg/dL (7-18)
[2023-02-05 09:09] LABS: PH,URINE 5.5 (5.0-8.0); URINE APPEARANCE CLEAR; URINE BILIRUBIN NEGATIVE (NEGATIVE); URINE COLOR YELLOW; URINE GLUCOSE (UA) NEGATIVE (NEGATIVE); URINE KETONE NEGATIVE (NEGATIVE); URINE LEUK ESTERASE NEGATIVE (NEGATIVE); URINE NITRITE NEGATIVE (NEGATIVE); URINE PROTEIN NEGATIVE (NEGATIVE); URINE UROBILINOGEN 0.2 mg/dL (0.2-1.0)
[2023-02-05 09:10] LABS: CREATININE 1.2 mg/dL (0.55-1.3)
[2023-02-05 09:11] LABS: BILIRUBIN,TOTAL 0.4 mg/dL (0.2-1); TOT PROT 6.4 g/dl (6.4-8.2)
[2023-02-05] MEDS ORDERED: METHOCARBAMOL 500 MG TABLET PO ONE ×2 (10:11)
[2023-02-05] MEDS ORDERED: LIDOCAINE 5% TOPICAL PATCH TP ONE (10:11)
[2023-02-05] MEDS ORDERED: ACETAMINOPHEN 325 MG TABLET (FP) PO ONE (10:11)
[2023-02-05] MEDS ORDERED: METHOCARBAMOL 500 MG TABLET ONE (10:16)
[2023-02-05] MEDS ORDERED: LIDOCAINE 4% PATCH TP ONE (10:16)
[2023-02-05] MEDS ORDERED: ACETAMINOPHEN 325 MG TABLET (FP) ONE (10:16)
[2023-02-05] MEDS ORDERED: oxyCODONE HCL 5 MG TABLET PO ONE (13:20)
[2023-02-05] MEDS ORDERED: oxyCODONE HCL 5 MG TABLET ONE (13:29)
[2023-02-05] MEDS ORDERED: LIDOCAINE 5% TOPICAL PATCH TP SCH (16:45)
[2023-02-05] MEDS ORDERED: LIDOCAINE 4% PATCH TP SCH (16:59)
[2023-02-05] MEDS ORDERED: CYCLOBENZAPRINE HCL 5 MG TABLET ONE (17:04)
[2023-02-05] MEDS: CYCLOBENZAPRINE HCL 5 MG TABLET PO SCH ×2 (17:09→21:49)
[2023-02-05 20:17] VITALS: BMI 26.9
[2023-02-05] MEDS: GABAPENTIN 100 MG CAPSULE PO SCH (21:49)
[2023-02-05] MEDS ORDERED: LIDOCAINE PATCH REMOVAL MC ONE (22:00)
[2023-02-05] MEDS ORDERED: HEPARIN NA (PORCINE) 5,000 UNITS/ML 1ML VIAL SQ SCH (22:00)
[2023-02-05] MEDS ORDERED: LIDOCAINE PATCH REMOVAL MC SCH (22:00)
[2023-02-06] MEDS: CYCLOBENZAPRINE HCL 5 MG TABLET PO SCH (05:50)
[2023-02-06] MEDS: GABAPENTIN 100 MG CAPSULE PO SCH (05:50)
[2023-02-06 05:58] VITALS: BP 126/49; PULSE 50; RESP 18; TEMP 97.8
[2023-02-06 07:17] LABS: BASO % 0.8 % (0-2.0); EOS % 1.6 % (0-4.5); HEMATOCRIT 34.2 % (35.4-49); HEMOGLOBIN 11.6 GM/dL (11.7-16.9); LYMPH % 21.3 % (8-40); MCH 29.9 pg (25.7-33.7); MCHC 33.9 g/dl (32.0-35.9); MEAN CELL VOLUME 88.3 fl (80-96); MONO % 5.8 % (3.8-10.2); NEUT % 70.5 % (42.8-82.8); PLATELET COUNT 151 10^3/uL (134-434); RBC 3.88 M/mm3 (4.00-5.60); RDW 12.8 % (11.9-15.9); WHITE BLOOD COUNT 5.4 K/mm3 (4.0-10.0)
[2023-02-06 07:28] LABS: BLOOD UREA NITROGEN 16.8 mg/dL (7-18)
[2023-02-06] MEDS ORDERED: methaDONE HCL 40 MG DISPERSABLE TABLET PO SCH (10:00)
[2023-02-06] MEDS ORDERED: LISINOPRIL 20 MG TABLET PO SCH (10:00)
[2023-02-06] MEDS ORDERED: HYDROCHLOROTHIAZIDE 25 MG TABLET (FP) PO SCH (10:00)
[2023-02-06] MEDS ORDERED: PANTOPRAZOLE 20 MG TABLET PO SCH (10:00)
== END 2023-02-06 09:00 | disposition left against medical advice (07) ==
LOC: JER 07:06 → JERBED 09:48 → J4W 19:15
PROVIDERS: ADMIT Internal Medicine; ATTEND Internal Medicine
PROC: 3E023GC Introduction of Other Therapeutic Substance into Muscle, Percutaneous Approach (ICD-10-PCS; principal; 2023-02-05)
DX: S39.92XA Unspecified injury of lower back, initial encounter (principal); W10.9XXA Fall (on) (from) unspecified stairs and steps, initial encounter; Y92.89 Other specified places as the place of occurrence of the external cause; Y93.89 Activity, other specified; D64.9 Anemia, unspecified; E11.9 Type 2 diabetes mellitus without complications; I10 Essential (primary) hypertension; F41.9 Anxiety disorder, unspecified; G89.29 Other chronic pain; M54.50 Low back pain, unspecified; R29.6 Repeated falls; M54.31 Sciatica, right side; Z79.891 Long term (current) use of opiate analgesic; Z87.891 Personal history of nicotine dependence; Z88.0 Allergy status to penicillin; M79.604 Pain in right leg
CPT/HCPCS: 0241U-QW; 36415; 70450-TC; 71045-TC-FY; 72125-TC; 72128-TC; 72131-TC; 72170-TC-FY; 73552-TC-RT-FY; 73562-TC-RT-FY; 73590-TC-RT-FY; 73610-TC-RT-FY; 73630-TC-RT-FY; 80048; 80053; 81003; 82962; 83735; 84484; 85025; 85610; 85730; 86850; 86900; 86901; 87040; 87086; 93005; 93010; 96372; 99285-25; G0378; J1644

== ENCOUNTER 2023-11-16 09:14 | Inpatient (IN) | payer OTHER ==
[2023-11-16 09:24] VITALS: BMI 28.7
[2023-11-16] MEDS ORDERED: ASPIRIN 325 MG TABLET ONE (09:34)
[2023-11-16] MEDS ORDERED: chlordiazePOXIDE HCL 25 MG CAPSULE ONE (09:56)
[2023-11-16] MEDS: chlordiazePOXIDE HCL 25 MG CAPSULE PO ONE (09:58)
[2023-11-16 10:27] LABS: BASO % 0.4 % (0-2.0); EOS % 0.8 % (0-4.5); HEMATOCRIT 42.8 % (35.4-49); HEMOGLOBIN 14.2 GM/dL (11.7-16.9); LYMPH % 17.7 % (8-40); MCH 28.5 pg (25.7-33.7); MCHC 33.3 g/dl (32.0-35.9); MEAN CELL VOLUME 85.4 fl (80-96); MEAN PLT VOLUME 7.1 fl (7.5-11.1); MONO % 5.4 % (3.8-10.2); NEUT % 75.7 % (42.8-82.8); PLATELET COUNT 242 10^3/uL (134-434); RDW 15.1 % (11.9-15.9); WHITE BLOOD COUNT 11.5 K/mm3 (4.0-10.0)
[2023-11-16 10:27] LABS: INR 1.19 (0.83-1.09); PROTHROMBIN TIME (PATIENT) 13.4 SEC (9.7-13.0)
[2023-11-16 10:30] LABS: ACTIVATED PTT 34.2 SECONDS (25.2-36.5)
[2023-11-16 10:40] LABS: POTASSIUM 3.7 mmol/L (3.5-5.1)
[2023-11-16 10:42] LABS: ALBUMIN 4.5 g/dl (3.4-5.0); CALCIUM 9.9 mg/dL (8.5-10.1)
[2023-11-16 10:46] LABS: CREATININE 1.2 mg/dL (0.55-1.3)
[2023-11-16 10:47] LABS: BILIRUBIN,TOTAL 1.2 mg/dL (0.2-1); TOT PROT 8.2 g/dl (6.4-8.2)
[2023-11-16 12:49] VITALS: RESP 20
[2023-11-16] MEDS ORDERED: ACETAMINOPHEN INJECTION 100 ML ONE (13:06)
[2023-11-16] MEDS: ACETAMINOPHEN 1000 MG/100 ML BAG IVPB ONE (13:09)
[2023-11-16 13:27] LABS: HIV INTERPRETATION NEGATIVE (NEGATIVE)
[2023-11-16] MEDS ORDERED: clonazePAM 0.5 MG TABLET ONE (15:31)
[2023-11-16] MEDS: clonazePAM 0.5 MG TABLET PO ONE (15:35)
[2023-11-16 18:39] VITALS: BP 120/81; PULSE 91; TEMP 98.6
== END 2023-11-16 18:39 | disposition home or self-care (01) | DRG 897 ==
LOC: JER 09:14 → JERBED 12:48 → OBSVTOIN 15:59
PROVIDERS: ADMIT Internal Medicine; ATTEND Internal Medicine
DX: F13.239 Sedative, hypnotic or anxiolytic dependence with withdrawal, unspecified (principal); I20.9 Angina pectoris, unspecified; I10 Essential (primary) hypertension; E78.5 Hyperlipidemia, unspecified; E11.9 Type 2 diabetes mellitus without complications; R07.9 Chest pain, unspecified; F41.9 Anxiety disorder, unspecified; M54.9 Dorsalgia, unspecified; R29.6 Repeated falls; R00.0 Tachycardia, unspecified
CPT/HCPCS: 36415; 71275-TC; 74174-TC; 80053; 82962; 83880; 84484; 85025; 85610; 85730; 86803; 86850; 86900; 86901; 87389; 87522; 93005; 93010; 93306-TC; 99285-25; G0378; J0131; Q9967